=== PATIENT | female | born 1970 | race Hispanic/Latino ===

== ENCOUNTER 2016-10-21 08:22 | Outpatient (CLI) | payer BC ==
--- NOTE | 2016-10-21 14:41 | Mammography Report ---
BILATERAL DIGITAL SCREENING MAMMOGRAM with CAD: 10/21/16 08:22:00 CLINICAL: Routine screening. COMPARISON:09/22/11 FINDINGS: The breasts are heterogeneously dense, which may obscure small masses. A left asymmetry on the CC view requires additional imaging.No architectural distortion or suspicious calcifications.The right breast is negative. IMPRESSION: Left asymmetry requiring further workup. BI-RADS CATEGORY: 0 -- Additional Imaging Evaluation Required RECOMMENDATION: Recall for left mediolateral and spot compression CC views and left breast ultrasound if needed. ACR BI-RADS MAMMOGRAPHIC CODES: 0 = Needs additional imaging evaluation; 1 = Negative; 2 = Benign; 3 = Probably benign; 4 = Suspicious; 5 = Malignant; 6 = Known biopsy-proven malignancy COMMENT: 1. Dense breast tissue, i.e., adenosis, fibrocystic changes, etc., may obscure an underlying neoplasm. 2. Approximately 10% of cancers are not detected with mammography. 3. A negative mammography report should not delay biopsy if a clinically suspicious mass is present. COMMENT: Patient follow-up letters are generated via our [employer] application.
== END 2016-10-21 08:23 | disposition home or self-care (01) ==
LOC: SPVWC 08:22
PROVIDERS: ATTEND Obstetrics & Gynecology
DX: Z12.31 Encounter for screening mammogram for malignant neoplasm of breast (principal); F17.200 Nicotine dependence, unspecified, uncomplicated
CPT/HCPCS: 77067; G0202

== ENCOUNTER 2016-11-03 10:28 | Outpatient (CLI) | payer BC ==
--- NOTE | 2016-11-03 11:32 | Ultrasound Report ---
LEFT DIGITAL DIAGNOSTIC MAMMOGRAM and LEFT BREAST ULTRASOUND: 11/03/16 10:28:00 CLINICAL: Recalled for asymmetry. COMPARISON:10/21/16 screening FINDINGS: ML and spot compression CC views were performed. Partial effacement of asymmetry on the spot view. The lateral view is negative. Ultrasound of the upper-outer left breast was performed and demonstrated normal fibroglandular structures with no mass, cyst or shadowing. Ultrasound of the left axilla demonstrated a lymph node with central fat and benign morphology measuring 2.7 x 0.7 x 2.3 cm. IMPRESSION: Benign mammographic asymmetry and negative left breast ultrasound. BI-RADS CATEGORY: 2 - - Benign RECOMMENDATION: Routine mammographic screening in one year. ACR BI-RADS MAMMOGRAPHIC CODES: 0 = Needs additional imaging evaluation; 1 = Negative; 2 = Benign; 3 = Probably benign; 4 = Suspicious; 5 = Malignant; 6 = Known biopsy-proven malignancy COMMENT: 1. Dense breast tissue, i.e., adenosis, fibrocystic changes, etc., may obscure an underlying neoplasm. 2. Approximately 10% of cancers are not detected with mammography. 3. A negative mammography report should not delay biopsy if a clinically suspicious mass is present. COMMENT: Patient follow-up letters are generated via our [employer] application.
== END 2016-11-03 10:29 | disposition home or self-care (01) ==
LOC: SPVWC 10:28
PROVIDERS: ATTEND Obstetrics & Gynecology
DX: N64.89 Other specified disorders of breast (principal); F17.200 Nicotine dependence, unspecified, uncomplicated
CPT/HCPCS: 76642; G0206

== ENCOUNTER 2018-09-21 10:44 | Outpatient (CLI) | payer BC ==
--- NOTE | 2018-09-21 13:24 | Mammography Report ---
BILATERAL DIGITAL SCREENING MAMMOGRAM with CAD: 09/21/18 10:44:00 CLINICAL: Routine screening. COMPARISON:10/21/16 FINDINGS: The breasts are heterogeneously dense, which may obscure small masses. Right asymmetries require additional imaging.No architectural distortion or suspicious calcifications.The left breast is negative. IMPRESSION: Right asymmetries requiring further workup. BI-RADS CATEGORY: 0 -- Additional Imaging Evaluation Required RECOMMENDATION: Recall for right mediolateral , spot compression CC and MLO views and right breast ultrasound. COMMENT: 1. Dense breast tissue, i.e., adenosis, fibrocystic changes, etc., may obscure an underlying neoplasm. 2. Approximately 10% of cancers are not detected with mammography. 3. A negative mammography report should not delay biopsy if a clinically suspicious mass is present. COMMENT: Patient follow-up letters are generated via our [employer] application.
== END 2018-09-21 10:45 | disposition home or self-care (01) ==
LOC: SPVWC 10:44
PROVIDERS: ATTEND Obstetrics & Gynecology
DX: Z12.31 Encounter for screening mammogram for malignant neoplasm of breast (principal); K21.9 Gastro-esophageal reflux disease without esophagitis
CPT/HCPCS: 77067

== ENCOUNTER 2018-10-01 09:14 | Outpatient (CLI) | payer BC ==
--- NOTE | 2018-10-01 11:44 | Mammography Report ---
RIGHT DIGITAL DIAGNOSTIC MAMMOGRAM 10/01/2018 RIGHT BREAST ULTRASOUND INDICATION: Recalled to evaluate asymmetries. TECHNIQUE: Digital 2-D mammographic imaging was performed. This examination was interpreted with the benefit of Computer-Aided Detection (CAD) analysis. COMPARISON: 09/21/2018 FINDINGS: Breast Density: The breasts are heterogeneously dense, which may obscure small masses. ML and spot compression MLO and CC views were performed. Circumscribed masses are identified on all v iews. Ultrasound Findings: Complete sonographic evlauation of all 4 quadrants and retroareolar region was p erformed. An oval solid smooth hypoechoic mass at 9:00 5 cm from the nipple measures 1.1 x 0.6 x 1. 1 cm and corresponds to an asymmetry on the mammogram. This mass is also palpable. An oval solid hypo echoic mass at 10:00 5 cm from the nipple measures 4 x 3 x 3 mm and correlates with the second mammog raphic density. It demonstrates posterior enhancement. IMPRESSION: Solid suspicious right breast masses at 9:00 5 cm from the nipple and at 10:00 5 cm from the nipple. Recommend ultrasound-guided needle biopsy. BI-RADS Category 4: Suspicious for Malignancy. I discussed the findings and my recommendation for needle biopsy with the patient at the time of the exam. A written summary of these findings will be mailed to the patient. The patient will be entered into a mammography reporting system which will generate a reminder letter for the patient's next appointmen t at the appropriate interval. FURTHER INFORMATION: According to the [employer], yearly mammograms are recommend ed starting at age 40 and continuing as long as a woman is in good health. Breast MRI is recommended for women with an approximately 20-25% or greater lifetime risk of breast cancer, including women wi th a strong family history of breast or ovarian cancer and women who have been treated for Hodgkin's disease. Signer Name: Marquise Madera MD Signed: 10/01/2018 11:39 AM Workstation Name: [id number]
--- NOTE | 2018-10-01 12:14 | Ultrasound Report ---
RIGHT DIGITAL DIAGNOSTIC MAMMOGRAM and RIGHT BREAST ULTRASOUND INDICATION: Recalled to evaluate asymmetries. TECHNIQUE: Digital 2-D mammographic imaging was performed. This examination was interpreted with the benefit of Computer-Aided Detection (CAD) analysis. COMPARISON: 09/21/2018 FINDINGS: Breast Density: The breasts are heterogeneously dense, which may obscure small masses. ML and spot compression MLO and CC views were performed. Circumscribed masses are identified on all vie ws. Ultrasound Findings: Complete sonographic evlauation of all 4 quadrants and retroareolar region was p erformed. An oval solid smooth hypoechoic mass at 9:00 5 cm from the nipple measures 1.1 x 0.6 x 1.1 cm and corresponds to an asymmetry on the mammogram. This mass is also palpable. An oval solid hypoec hoic mass at 10:00 5 cm from the nipple measures 4 x 3 x 3 mm and correlates with the second mammogra phic density. It demonstrates posterior enhancement. IMPRESSION: Solid suspicious right breast masses at 9:00 5 cm from the nipple and at 10:00 5 cm from the nipple. Recommend ultrasound-guided needle biopsy of both masses. BI-RADS Category 4: Suspicious for Malignancy. I discussed the findings and my recommendation for needle biopsies with the patient at the time of th e exam. A written summary of these findings will be mailed to the patient. The patient will be entered into a mammography reporting system which will generate a reminder letter for the patient's next appointmen t at the appropriate interval. FURTHER INFORMATION: According to the [employer], yearly mammograms are recommende d starting at age 40 and continuing as long as a woman is in good health. Breast MRI is recommended f or women with an approximately 20-25% or greater lifetime risk of breast cancer, including women with a strong family history of breast or ovarian cancer and women who have been treated for Hodgkin's di sease. Signer Name: Marquise Madera MD Signed: 10/01/2018 12:09 PM Workstation Name: [id number]
== END 2018-10-01 09:15 | disposition home or self-care (01) ==
LOC: SPVWC 09:14
PROVIDERS: ATTEND Obstetrics & Gynecology
DX: R92.8 Other abnormal and inconclusive findings on diagnostic imaging of breast (principal); K21.9 Gastro-esophageal reflux disease without esophagitis

== ENCOUNTER 2018-10-10 08:47 | Outpatient (CLI) | payer BC ==
--- NOTE | 2018-10-10 10:36 | Mammography Report ---
RIGHT DIGITAL DIAGNOSTIC MAMMOGRAM CLINICAL: For clip placement after ultrasound needle biopsy. COMPARISON: 09/21/2018 FINDINGS: A localizer clip is now identified within the mass at 9:00. IMPRESSION: Concordant clip deployment. Signer Name: Marquise Madera MD Signed: 10/10/2018 10:32 AM Workstation Name: [id number]
--- NOTE | 2018-10-10 10:38 | Ultrasound Report ---
ULTRASOUND-GUIDED NEEDLE CORE BIOPSY RIGHT BREAST WITH CLIP PLACEMENT CLINICAL: A superficial right breast mass at 9:00 5 cm from the nipple. FINDINGS: The procedure was explained to the patient and informed consent was obtained. Ultrasound demonstrated the previously identified lesion at 9:00 5 cm from the nipple. The previously identified smaller lesion at 10:00 5 cm from the nipple could not be found. A marker breast with a felt tip marker and a timeout was called. The skin was prepped with Chloro-Pre p and anesthetized with 1% lidocaine. Needle core biopsy was performed through tiny dermatotomy using ultrasound guidance, 2% lidocaine wit h epinephrine for deep anesthesia and a 14-gauge Achieve biopsy device. 4 cores were obtained and dinah akin in formalin. The lesion showed no collapse with a biopsy. A clip was deployed within the lesion. The patient tolerated the procedure well and there were no apparent convocations. Hemostasis was achi eved with minimal effort and a sterile dressing was applied. A post procedure mammogram demonstrated concordant clip deployment. She left the department in good c ondition and was given instructions for wound care and follow-up. IMPRESSION: Uncomplicated ultrasound guided needle core biopsy with clip placement right breast. Signer Name: Marquise Madera MD Signed: 10/10/2018 10:34 AM Workstation Name: [id number]
== END 2018-10-10 08:48 | disposition home or self-care (01) ==
LOC: SPVWC 08:47
PROVIDERS: ATTEND Obstetrics & Gynecology
DX: C50.411 Malignant neoplasm of upper-outer quadrant of right female breast (principal); F17.210 Nicotine dependence, cigarettes, uncomplicated; K21.9 Gastro-esophageal reflux disease without esophagitis; M19.90 Unspecified osteoarthritis, unspecified site; Z88.2 Allergy status to sulfonamides; Z79.899 Other long term (current) drug therapy; Z88.8 Allergy status to other drugs, medicaments and biological substances
CPT/HCPCS: 88305; 88341; 88342

== ENCOUNTER 2018-10-25 13:03 | Outpatient (CLI) | payer BC ==
--- NOTE | 2018-10-30 12:50 | PET Report ---
PET SB TO MT INITIAL INDICATION: C50.411 staging of right breast cancer TECHNIQUE: 15.5 mCi of F18-FDG is administered via the right antecubital fossa at 1347 hours. Imaging is perfor med at 1459 hours. Glucose level is 101 mg/dl just prior to the exam. Imaging is performed from the skull base to the proximal thighs. CT imaging is obtained for attenuation correction and anatomic localization. All CT scans at this location are performed using CT dose reduction for ALARA by means of automated exposure control. COMPARISON: None Available FINDINGS: The PET images demonstrate a solitary focus of increased radiotracer accumulation within a 1 cm nodu le in the lateral right breast at approximate 3:00 position. This nodule appears to contain a biopsy clip. Maximum SUV measures 7.7. No additional areas of abnormal uptake are identified. CT NECK: No evidence for mass or adenopathy. CT CHEST: Heart and mediastinal structures are within normal limits. No intrathoracic or extrathoraci c adenopathy is identified. The lungs are clear. No suspicious nodule or mass. CT ABDOMEN: Normal liver, biliary system, pancreas, spleen, adrenal glands, kidneys, aorta and bowel loops. No visceral mass or abdominal adenopathy is identified. CT PELVIS: The uterus, adnexa and bladder are unremarkable. No pelvic mass or adenopathy. Review of the bony structures demonstrates mild degenerative changes in the spine. No suspicious bony lesion or fracture is identified. IMPRESSION: 1 cm hypermetabolic nodule in the lateral right breast consistent with primary breast cancer. No evid ence for metastatic disease at this time. Signer Name: Emilio Hamilton Jr, MD Signed: 10/30/2018 12:45 PM Workstation Name: [id number]
== END 2018-10-25 13:04 | disposition home or self-care (01) ==
LOC: PET 13:03
PROVIDERS: ATTEND Internal Medicine Hematology & Oncology
DX: N63.10 Unspecified lump in the right breast, unspecified quadrant (principal); C50.411 Malignant neoplasm of upper-outer quadrant of right female breast; K21.9 Gastro-esophageal reflux disease without esophagitis; Z72.0 Tobacco use; Z80.3 Family history of malignant neoplasm of breast
CPT/HCPCS: 78815; 82962; A9552

== ENCOUNTER 2018-10-29 09:21 | Outpatient (CLI) | payer BC ==
--- NOTE | 2018-10-30 09:50 | Magnetic Resonance Report ---
BILATERAL BREAST MR WITHOUT AND WITH GADOLINIUM INDICATION: This is a 48-year-old female with recent diagnosis of right breast carcinoma. On 10/11/19 19, a right breast ultrasound guided biopsy was performed for a mass in the 9:00 position of the righ t breast. A second mass lesion at 10:00 seen on prior exam could not be identified at the time of bio psy. COMPARISONS: Comparison is with recent bilateral screening mammogram, 09/21/2018, as well as diagnost ic right mammogram and ultrasound on 10/01/2018 and 10/10/2018 TECHNIQUE: Bilateral breast MRI was performed on a 1.5 Elaine magnet with a dedicated breast coil. M ultiplanar dynamic sequences of both breasts were obtained before and after administration of weight- based gadolinium. Post processing images include, post contrast subtraction, maximum intensity proje ction, and reconstructed multiplanar images. FINDINGS: Both breasts contain heterogeneously dense breast tissue RIGHT BREAST: In the 9:00 position of the right breast, middle depth, there is an oval partially well -circumscribed mass measuring 11 mm in greatest diameter. It does contain a biopsy clip, documenting that this is the biopsy-proven breast carcinoma. This carcinoma is approximately 5.5 cm from the nipp le, 6.7 cm from the pectoralis muscle and is abutting the dermis. There is no definitive dermal invas ion, however. There is a second enhancing mass in the right breast at approximately 8:00, posterior depth. This mas s is approximately 10 mm in greatest diameter and is located 9 mm from the pectoralis muscle, 9.5 cm from the nipple, and 2.5 cm from the nearest skin surface (lateral). This mass shows peripheral enhan cement only. I suspect there is central necrosis. This mass is certainly suspicious for a second site of breast carcinoma. There is a third small enhancing lesion in the upper outer quadrant, posterior depth which I suspect is a benign intramammary lymph node. No suspicious axillary adenopathy. LEFT BREAST: No breast mass or abnormal area of enhancement is identified within the left breast. The left breast has a normal appearance on MRI. Visualized portions of the thoracic spine, liver, and axillary fely regions are unremarkable. IMPRESSION: 1. Biopsy-proven breast carcinoma in the 9:00 position of the right breast, middle depth. 2. 10 mm partially enhancing mass in the 8:00 position, posterior depth, highly suggestive for second site of breast carcinoma. 3. No abnormal findings within the left breast. FINAL ASSESSMENT: BI-RADS 5: Highly suggestive for malignancy. Signer Name: Genevieve Willis MD Signed: 10/30/2018 9:45 AM Workstation Name: [id number]
== END 2018-10-29 09:22 | disposition home or self-care (01) ==
LOC: SPVIMAG 09:21
PROVIDERS: ATTEND Surgery
DX: C50.911 Malignant neoplasm of unspecified site of right female breast (principal)
CPT/HCPCS: A9577; C8908; 77049

== ENCOUNTER 2018-10-30 06:54 | Day surgery (SDC) | payer BC ==
[~2018-10-30 06:54] MED LIST: ANCEF/STERILE WATER 2 GM/20 ML 2 GM/20 ML SYRINGE IV SCH
--- NOTE | 2018-10-30 07:31 | Anesthesia Day of Surgery ---
Anesthesia Day of Surgery - Day of Surgery Patient Examined: Yes Patient H&P Reviewed: Yes Patient is NPO: Yes
--- NOTE | 2018-10-30 07:31 | Anesthesia Consultation ---
Anesthesia Consult and Med Hx Date of service: 10/30/18 - Airway Anesthetic Teeth Evaluation: Good ROM Head & Neck: Adequate Mental/Hyoid Distance: Adequate Mallampati Class: Class II Intubation Access Assessment: Good - Pulmonary Exam CTA: Yes - Cardiac Exam Cardiac Exam: RRR - Pre-Operative Health Status ASA Pre-Surgery Classification: ASA3 Proposed Anesthetic Plan: General, MAC - Pulmonary Hx Smoking: Yes (25 years) - Gastrointestinal Hx Gastroesophageal Reflux Disease: Yes
[2018-10-30] MEDS ORDERED: LACTATED RINGERS 1,000 ML IV SCH (08:00)
[2018-10-30] MEDS ORDERED: ceFAZolin 2 GM in NACL 0.9% 100 ML IV ONE (08:00)
[2018-10-30] MEDS ORDERED: VERSED IV NR (08:00)
[2018-10-30] MEDS ORDERED: SUBLIMAZE ONE (08:59)
[2018-10-30] MEDS ORDERED: VERSED ONE (08:59)
[2018-10-30] MEDS ORDERED: DIPRIVAN 10 MG/ML IV ONE ×2 (09:00→09:44)
[2018-10-30] MEDS ORDERED: NACL 0.9% IV ONE (09:09)
[2018-10-30] MEDS ORDERED: MARCAINE 0.25% INFILTRATI ONE ×2 (09:09→09:17)
[2018-10-30] MEDS ORDERED: XYLOCAINE 1% 20 mL INFILTRATI ONE (09:09)
[2018-10-30] MEDS ORDERED: HEPARIN 10,000 UNITS/10 ML IV ONE (09:09)
[2018-10-30] MEDS ORDERED: NACL 0.9% 100 ML ONE (09:17)
[2018-10-30] MEDS ORDERED: XYLOCAINE 1% 20 mL ONE (09:17)
[2018-10-30] MEDS ORDERED: HEPARIN 10,000 UNITS/10 ML ONE (09:17)
[2018-10-30] MEDS ORDERED: XYLOCAINE MPF 2% ONE (09:21)
--- NOTE | 2018-10-30 10:13 | Short Stay Summary ---
Short Stay Documentation Date of service: 10/30/18 - History Principal diagnosis: right breast cancer H&P: obtained from office - Allergies and Medications Current Medications: Allergies levofloxacin [From Levaquin] Allergy (Verified 07/13/14 14:04) Rash Sulfa (Sulfonamide Antibiotics) Allergy (Verified 02/24/13 21:02) Hives Home Medications Medication Instructions Recorded Confirmed Last Taken Type Celecoxib [Celebrex] 50 mg PO BID 02/24/13 10/30/18 10/26/18 09:00 History Ciprofloxacin HCl [Cipro] 500 mg PO Q12H #20 tab 02/24/13 10/30/18 Unknown Rx Cyclobenzaprine HCl [FLEXERIL] 10 mg PO PRN PRN 02/24/13 10/30/18 10/27/18 09:00 History Duloxetine HCl [Cymbalta] 60 mg PO QDAY 02/24/13 10/30/18 10/29/18 21:00 History Fenofibrate [Fenoglide] 40 mg PO QDAY 02/24/13 10/30/18 10/29/18 21:00 History Lansoprazole [Prevacid] 30 mg PO QDAY 02/24/13 10/30/18 10/29/18 09:00 History Ondansetron [Zofran] 4 mg PO Q6HR PRN #10 tablet 02/24/13 10/30/18 Unknown Rx SUMAtriptan SUCCINATE [Imitrex] 100 mg PO PRN PRN 02/24/13 10/30/18 10/29/18 21:00 History HYDROcodone/APAP 5-325 [[place] 1 each PO Q6HR PRN #20 tablet 07/13/14 10/30/18 Unknown Rx 5/325] Atorvastatin [Lipitor Tab] 40 mg PO QHS 10/29/18 10/30/18 10/29/18 21:00 History Dicyclomine [Bentyl] 10 mg PO PRN 10/29/18 Unknown History Imitrex 100 mg PO PRN 10/29/18 10/29/18 09:00 History Propranolol HCl [Innopran Xl] 80 mg PO 10/29/18 10/29/18 21:00 History Topiramate [Topamax] 50 mg PO PRN 10/29/18 10/30/18 06:00 History Trazodone HCl 75 mg PO QHS 10/29/18 10/29/18 10/29/18 21:00 History Active Medications Cefazolin Sodium (Ancef/Sterile Water 2 Gm/20 Ml) 2 gm in 20 mls @ 80 mls/hr IV PREOP SHARI Stop: 10/30/18 23:59 Lactated Ringer's (Lactated Ringers) 1,000 mls @ 100 mls/hr IV DIRECT SHARI Last Admin: 10/30/18 07:45 Dose: 100 mls/hr Documented by: Midazolam HCl (Versed) 2 mg IV PREOP NR Stop: 10/30/18 23:59 Last Admin: 10/30/18 08:52 Dose: 2 mg Documented by: - Brief post op/procedure progress note Date of procedure: 10/30/18 Pre-op diagnosis: right breast cancer Post-op diagnosis: same Procedure: left subclavian port placement, mindray ultrasound guidance Anesthesia: MAC, local Findings: good placement of port without PTX on post op CXR Surgeon: MEET CASTILLO Estimated blood loss: minimal Pathology: none Condition: stable - Hospital course Hospital course: Pt observed in PACU and discharged to home in stable condition when criteria met - Disposition Condition at discharge: Good Disposition: DC-01 TO HOME OR SELFCARE Short Stay Discharge Plan Activity: no restrictions Diet: regular Wound: open to air, other (see printed discharge instructions) Additional Instructions: SEE PRINTED DISCHARGE INSTRUCTIONS Follow up with: BEATRIZ BELTRE MD [Primary Care Provider] - 7 Days MEET CASTILLO DO [Staff Physician] - 10 Days Prescriptions: HYDROcodone/APAP 5-325 [[place] 5-325 mg TAB] 1 each PO Q6HR PRN #10 tablet PRN Reason: Pain
[2018-10-30] MEDS ORDERED: ZOFRAN IV PRN (10:21)
[2018-10-30] MEDS ORDERED: DILAUDID IV PRN (10:21)
[2018-10-30] MEDS ORDERED: DILAUDID ONE (10:22)
[2018-10-30 10:47] VITALS: BP 126/87
--- NOTE | 2018-10-30 10:48 | Fluoroscopy Report ---
INTRAOPERATIVE FLUOROSCOPY: PORT PLACEMENT INDICATION: BREAST CANCER. TECHNIQUE: Intraoperative spot images were obtained during the procedure. FINDINGS: Left subclavian port catheter tip projects at the SVC/right atrial junction. No pneumothorax is seen. Fluoroscopy Time: 38 seconds. Fluoroscopy Images: 2. Signer Name: Paul Yoon MD Signed: 10/30/2018 10:43 AM Workstation Name: [id number]
--- NOTE | 2018-10-30 15:52 | Operative Report ---
PREOPERATIVE DIAGNOSIS: Right breast cancer. POSTOPERATIVE DIAGNOSIS: Right breast cancer. PROCEDURE PERFORMED: Left subclavian port placement with Mindray ultrasound guidance. ANESTHESIA: MAC local. FINDINGS: Good placement of port without pneumothorax and postop chest x-ray. SURGEON: Johanna Harden DO. ESTIMATED BLOOD LOSS: Minimal. PATHOLOGY: None. CONDITION DISPOSITION: The patient is stable to PACU. HISTORY OF PRESENT ILLNESS AND INDICATION: The patient is a 48-year-old female who has recently been diagnosed with right-sided breast cancer and was deemed a candidate for chemotherapy by her oncologist. She was seen in the office for evaluation and all procedure, risks, benefits and alternatives were discussed with her and questions answered. Consent was obtained. PROCEDURE IN DETAIL: The patient was identified in preoperative area and taken back to the operating room and placed on the operating table in supine position. After anesthesia was induced, bilateral arms were tucked and all bony prominences padded. A shoulder roll was also placed. Bilateral upper chest and neck were prepped and draped in the usual sterile fashion. Timeout was performed. Using the Mindray ultrasound, the left subclavian vein and internal jugular vein were identified. The patient was placed in Trendelenburg position and the left subclavian vein was seen to easily collapse with each respiration. It was therefore decided to attempt a left internal jugular vein stick. The skin was anesthetized with local anesthetic and the vein accessed on the first stick. The vein was attempted to be accessed; however, collapsed very easily with each respiration and therefore this attempt was aborted. Pressure was held at the site and hemostasis ensured. I then turned my attention to evaluating subclavian vein again. The subclavian vein was found and appeared to be less collapsible in the Trendelenburg position and therefore it was accessed on the first stick. After access, there was return of dark red nonpulsatile blood. A wire was threaded easily and position confirmed using fluoroscopy. A local anesthetic was infiltrated in skin and subcutaneous tissue at the upper chest at the intended incision site for the pocket. A 4 cm incision was made using 15 blade and dissection was carried down through skin and subcutaneous tissue using Bovie electrocautery until the prepectoral fascia was identified. A subcutaneous pocket was then created for the port using combination of blunt dissection and electrocautery. The pocket was checked for hemostasis. The catheter was then tunneled from the pocket to the wire and then the dilator breakaway catheter sheath were inserted over the wire and advanced under fluoroscopic guidance. The dilator and catheter and wire were removed and the catheter was threaded through the break-away sheath in the usual fashion and the breakaway sheath removed. Catheter was seen to lay flush under the skin. There were no kinks. The catheter was pulled back under fluoroscopic guidance until the tip was seen in the superior vena cava. The port was then cut and assembled in the usual fashion and sutured to the prepectoral fascia using 2-0 Vicryl interrupted sutures. The port was tested with heparinized saline. There was return of dark red blood and the port flushed easily. The port was then instilled with 3000 units of heparin. The wound was checked for hemostasis and the incisions were then closed. The deep dermal layer was closed with interrupted 3-0 Vicryl sutures. Both skin incisions were closed with 4-0 Monocryl subcuticular stitches and skin glue. At the end of the case, all sponge, instrument, sharp counts were correct x 2. Postoperative chest x-ray showed the port to be in good position without pneumothorax. The patient was awoken from anesthesia and taken to PACU in stable condition. JOB# [id number] FAWN/JUAN CARLOS
== END 2018-10-30 11:20 | disposition home or self-care (01) ==
LOC: OR 06:54
PROVIDERS: ATTEND Surgery
DX: C50.911 Malignant neoplasm of unspecified site of right female breast (principal); G43.909 Migraine, unspecified, not intractable, without status migrainosus; K21.9 Gastro-esophageal reflux disease without esophagitis; M19.90 Unspecified osteoarthritis, unspecified site; F32.9 Major depressive disorder, single episode, unspecified; F41.9 Anxiety disorder, unspecified; F17.210 Nicotine dependence, cigarettes, uncomplicated; Z88.2 Allergy status to sulfonamides; Z88.8 Allergy status to other drugs, medicaments and biological substances; Z79.899 Other long term (current) drug therapy
CPT/HCPCS: 36561; 77001; C1769; C1788; J0690; J1170; J1644; J2250; J2704; J3010; J7120

== ENCOUNTER 2018-11-06 08:01 | Outpatient (CLI) | payer BC ==
[2018-11-06] MEDS ORDERED: FLUSH HEPARIN IV ONE (08:35)
--- NOTE | 2018-11-06 14:14 | Nuclear Medicine Report ---
NUCLEAR MEDICINE MUGA GATED CARDIAC SCAN HISTORY: Cardiomyopathy unspecified TECHNIQUE: 20 mCi of technetium 99m labeled red blood cells was administered. First pass technique wa s performed. FINDINGS: The planar images demonstrate no gross cardiac wall motion abnormality. Heart rate measures 63 bpm. The cardiac ejection fraction ranges from 53.4-55.2%. IMPRESSION: The cardiac ejection fraction ranges from 53.4-55.2%. Signer Name: Emilio Hamilton Jr, MD Signed: 11/06/2018 2:09 PM Workstation Name: [id number]
== END 2018-11-06 08:02 | disposition home or self-care (01) ==
LOC: NM 08:01
PROVIDERS: ATTEND Internal Medicine Cardiovascular Disease
DX: I42.9 Cardiomyopathy, unspecified (principal); K21.9 Gastro-esophageal reflux disease without esophagitis
CPT/HCPCS: 78472; A9560; J1642

== ENCOUNTER 2018-11-07 09:47 | Outpatient (CLI) | payer BC ==
--- NOTE | 2018-11-07 12:04 | Mammography Report ---
Ultrasound-guided right breast biopsy INDICATION: New diagnosis of right breast cancer, secondary of concern noted posteriorly in the right breast on MR COMPARISON: MR breast 10/29/2018, right breast ultrasound 10/01/2018, right wrist sonographic guided biop sy images 10/10/2018, postbiopsy right mammogram 10/10/2018, right diagnostic mammogram 10/01/2018, bilat eral screening mammogram 09/21/2018, bilateral screening mammogram 10/21/2016 Procedure was discussed at length with the patient in advance including possible risks and benefits. The possibility of bleeding and hematoma formation as well as the possibility of injury to the chest wall musculature was discussed in detail. Patient is not on anticoagulant therapy and reports no pert inent allergies. Timeout was performed. The hypoechoic nodule with shadowing near the chest wall was identified. This measures approximate 9 mm in diameter and is located in the 9:00 position, 9 cm from the nipple, corresponding to mammographic and MR abnormalities. With a lateral approach using asepti c technique and local anesthesia, a 14-gauge Achieve biopsy device was used to obtain 4 core samples of this lesion which were placed in formalin and labeled and secured for transport to pathology. A cl ip was left in place at the end of the procedure. No obvious hematoma or chest wall injury was noted in examination following biopsy. No obvious complication occurred and the patient tolerated the proce dure well. Site was secured and patient was sent for postbiopsy mammogram. Postbiopsy right mammogram Two-view mammogram shows the clip at the site of a radiographic density in the far posterior breast w ith decrease in prominence of this density following the biopsy. The recent biopsy site more anterior ly is also noted with a clip. IMPRESSION: Successful ultrasound-guided right breast biopsy Signer Name: Seven Rice MD Signed: 11/07/2018 12:00 PM Workstation Name: [id number]
== END 2018-11-07 09:48 | disposition home or self-care (01) ==
LOC: SPVWC 09:47
PROVIDERS: ATTEND Surgery
DX: C50.411 Malignant neoplasm of upper-outer quadrant of right female breast (principal); K21.9 Gastro-esophageal reflux disease without esophagitis; M19.90 Unspecified osteoarthritis, unspecified site; F17.210 Nicotine dependence, cigarettes, uncomplicated; Z88.2 Allergy status to sulfonamides; Z79.899 Other long term (current) drug therapy; Z88.8 Allergy status to other drugs, medicaments and biological substances
CPT/HCPCS: 88305; 88341; 88342

== ENCOUNTER 2019-04-03 07:37 | Day surgery (SDC) | payer BC, OTHER ==
[~2019-04-03 07:37] MED LIST changes: -ANCEF/STERILE WATER 2 GM/20 ML 2 GM/20 ML SYRINGE IV SCH; +LIDOCAINE (1%) 10 MG/1 ML VIAL 20 ML MDV INFILTRATI NR; +ceFAZolin/Water 2 GM/20 ML 2 GM/20 ML SYRINGE IV NR
[2019-04-03] MEDS ORDERED: LIDOCAINE (1%) 10 MG/1 ML VIAL 20 ML MDV ONE (08:13)
[2019-04-03] MEDS ORDERED: LACTATED RINGERS 1,000 ML ONE (09:07)
--- NOTE | 2019-04-03 09:57 | Anesthesia Consultation ---
Anesthesia Consult and Med Hx Date of service: 04/03/19 - Airway Anesthetic Teeth Evaluation: Caps ROM Head & Neck: Adequate Mental/Hyoid Distance: Adequate Mallampati Class: Class II Intubation Access Assessment: Good - Pulmonary Exam CTA: Yes - Cardiac Exam Cardiac Exam: RRR - Pre-Operative Health Status ASA Pre-Surgery Classification: ASA3 Proposed Anesthetic Plan: General Nerve Block: PEC - Pulmonary Hx Smoking: Yes (SINCE AGE 16; 8CIG/DAY) - Central Nervous System Hx Psychiatric Problems: Yes - Gastrointestinal Hx Gastroesophageal Reflux Disease: Yes - Other Systems Hx Alcohol Use: Yes (SOCIALLY) Hx Substance Use: No Hx Cancer: Yes
--- NOTE | 2019-04-03 09:58 | Anesthesia Day of Surgery ---
Anesthesia Day of Surgery - Day of Surgery Patient Examined: Yes Patient H&P Reviewed: Yes Patient is NPO: Yes
[2019-04-03] MEDS ORDERED: dexAMETHasone 4 MG/ML VIAL IV NR (10:00)
[2019-04-03] MEDS ORDERED: GABAPENTIN 300 MG CAP PO NR (10:00)
[2019-04-03] MEDS ORDERED: FAMOTIDINE 20 MG TAB PO NR (10:00)
[2019-04-03] MEDS ORDERED: MIDAZOLAM 2 MG/2 ML INJ IV NR (10:00)
[2019-04-03] MEDS ORDERED: LACTATED RINGERS 1,000 ML IV SCH (10:00)
[2019-04-03] MEDS ORDERED: BUPIVACAINE/PF (0.5%) 5 MG/1 ML 10 ML VIAL INFILTRATI NR (10:00)
[2019-04-03] MEDS ORDERED: CELECOXIB 200 MG CAP PO NR (10:00)
--- NOTE | 2019-04-03 10:13 | Mammography Report ---
NEEDLE LOCALIZATION AND HOOKWIRE PLACEMENT RIGHT BREAST X2 INDICATION: Right breast cancer at two sites. COMPARISON: 03/11/2019 FINDINGS: Using mammographic guidance, sterile technique and 1% lidocaine, a 10 [address] Valverde [address] from a lateral approach to localize a posterior lateral biopsy clip corresponding to the known canc er. Satisfactory positioning was confirmed on orthogonal views and the hookwire deployed. The needle was removed. A 3.5 cm Valvered 2 hookwire was placed from a lateral approach to localize a more anteri or biopsy clip corresponding to a known cancer. Satisfactory positioning was confirmed by orthogonal views and the hookwire was deployed. The needle was removed. The patient tolerated the procedure well and there were no apparent complications. She was taken to the operative suite in good condition. IMPRESSION: Uncomplicated placement of 2 hook wires in the right breast to localize 2 known cancers. Signer Name: Marquise Madera MD Signed: 04/03/2019 10:08 AM Workstation Name: [id number]
[2019-04-03] MEDS ORDERED: BUPIVACAINE-EPINEPHRINE/PF 0.5%-1:200,000 (30 ML) VIAL INFILTRATI ONE (11:43)
[2019-04-03] MEDS ORDERED: PROPOFOL 200 MG/20 ML VIAL IV ONE (12:46)
[2019-04-03] MEDS ORDERED: METHYLENE BLUE 50 MG/10 ML AMP ONE (12:46)
[2019-04-03] MEDS ORDERED: SODIUM CHLORIDE P/F VIAL 10 ML 10 ML ONE (12:46)
[2019-04-03] MEDS ORDERED: LIDOCAINE MPF (2%) 20 MG/1 ML VIAL 5 ML ONE (12:46)
[2019-04-03] MEDS ORDERED: fentaNYL 100 MCG/2 ML INJ ONE (12:46)
[2019-04-03] MEDS ORDERED: dexAMETHasone 20 MG/5 ML VIAL ONE (13:15)
[2019-04-03] MEDS ORDERED: ONDANSETRON 4 MG/2 ML INJ ONE (13:15)
[2019-04-03] MEDS ORDERED: PHENYLEPHRINE/NS 1,000 MCG/10 ML SYRINGE (OR USE) IV ONE (13:17)
[2019-04-03] MEDS ORDERED: ePHEDrine SULFATE 50 MG/1 ML INJ ONE (13:51)
[2019-04-03] MEDS ORDERED: WATER FOR IRRIG STERILE 1,500 ML BOTTLE IR ONE (14:43)
[2019-04-03] MEDS ORDERED: METHYLENE BLUE 50 MG/10 ML AMP IRRIGATION ONE (14:44)
[2019-04-03] MEDS ORDERED: SODIUM CHLORIDE 0.9% P/F 10 ML VIAL INFILTRATI ONE (14:45)
--- NOTE | 2019-04-03 15:31 | Mammography Report ---
SPECIMEN RADIOGRAPH RIGHT BREAST INDICATION: Status post excisional biopsy of 2 known cancers. COMPARISON: 03/11/2019 and 11/07/2018 FINDINGS: 2 localizer clips and 2 hookwires are identified within the specimen. IMPRESSION: Excision of the known cancers. Signer Name: Marquise Madera MD Signed: 04/03/2019 3:27 PM Workstation Name: [id number]
--- NOTE | 2019-04-03 16:15 | Operative Report ---
Operative Report Operative Report: April 03, 2019 Preoperative diagnosis: Multifocal right breast cancer of the upper outer quadrant Postoperative diagnosis: Same Procedure: Right needle localization partial mastectomy of the upper outer quadrant and SLNB Surgeon: Gissell Hollingsworth MD Gold Cutter: Mr. Chun Anesthesia: General Findings: Right wires and clips present within radiograph specimen; x5 SLN Complications: None EBL: Less than 50 cc Disposition: PACU in good condition Indications for operative procedure: This is a 48 year old lady with newly diagnosed multifocal right breast cancer of the upper outer quadrant (9:00 positions), Stage II [id number] ER/MI positive. Patient wished to proceed with breast conservation. She completed neoadjuvant chemotherapy of TC. Recent diagnostic imaging following chemotherapy with prior breast cancer masses not present. Radiology bracketed both areas of cancer of location of known IDCA b reast cancer. She understands the role of adjuvant radiation therapy. She wished to proceed with the above procedure. Procedure in detail: The patient was taken to radiology for wire placement for l ocalization known area of cancer. Anesthesia placed right pectoral block. Patient was then taken to the operating room. Gen. anesthesia was administered. The right nipple was injected with radioisotope and 1 cc of methylene blue dye with 1 cc of saline. Right breast and axilla were prepped and draped in the normal sterile operative fashion. The wires were identified. Timeout was performed. Gamma probe was inserted into the axilla. The area of hot spot was identified. A right axillary incision was made with a 15 blade knife with dissection taken down to the subcutaneous tissues. The axillary fascia was opened with the Bovie cautery. 5 SLNs were identified (2 SLNs were maybe axillary tissue with lymphatics). All remaining counts were less than 10% of the highest count. Lymph node was sent to pathology for permanent processing. Hemostasis was obtained in the right axillary cavity. Axillary cavity was appropriately irrigated and suctioned. Hemostasis was noted. Axillary fascia was approximated and closed using interrupted 3-0 Vicryl and the skin brought together and closed using a running 4-0 Monocryl followed by skin affix. Attention was then taken towards the right breast. Lateral breast incision was made with a 15 blade knife and dissection taken down to subcutaneous tissues. First began raising of the lateral flap with removal of the wire from the skin with dissection take down to the latissmus dorsi muslce, followed by raising of the posterior flap with dissection of the posterior breast tissue from the pectoralis muscle and flap taken medially, then followed by raising of the inferior flap, medial flap and superior flap (wire removed from the skin) with all flaps taken down to the pectoralis muscle. The breast area of concern was appropriately removed posteriorly from the pectoralis muscle with the aid of the Bovie cautery. The wires were not encountered. Specimen was marked and then sent to pathology and radiology; radiograph specimen with wires and clips present. Posterior subcutaneous tissues aspect of skin was marked with silk if margins were close so area would be properly identified; breast mass no longer present. Breast cavity was irrigated and hemostasis was obtained. The posterior deep breast tissues were approximated and closed using interrupted 3-0 Vicryl. The subcutaneous tissues were approximated and closed using interrupted 3-0 Vicryl followed by closing of the skin with a running 4-0 Monocryl and skin affix. The patient tolerated surgery very well and she was awaken from anesthesia without any complication and transported to PACU in good condition.
--- NOTE | 2019-04-03 16:18 | Short Stay Summary ---
Short Stay Documentation Date of service: 04/03/19 - History H&P: obtained from office - Allergies and Medications Current Medications: Allergies levofloxacin [From Levaquin] Allergy (Verified 03/28/19 09:28) Rash Sulfa (Sulfonamide Antibiotics) Allergy (Verified 03/28/19 09:28) Hives Home Medications Medication Instructions Recorded Confirmed Last Taken Type Cyclobenzaprine HCl [FLEXERIL] 10 mg PO TID PRN 02/24/13 03/28/19 10/27/18 09:00 History Duloxetine HCl [Cymbalta] 60 mg PO BID 02/24/13 03/28/19 10/29/18 21:00 History Lansoprazole [Prevacid] 30 mg PO QDAY 02/24/13 03/28/19 10/29/18 09:00 History Ondansetron [Zofran TAB] 4 mg PO Q6HR PRN #10 tablet 02/24/13 03/28/19 Unknown Rx SUMAtriptan SUCCINATE [Imitrex] 100 mg PO PRN PRN 02/24/13 03/28/19 10/29/18 21:00 History Atorvastatin [Lipitor] 40 mg PO QHS 10/29/18 03/28/19 10/29/18 21:00 History Dicyclomine [Bentyl] 10 mg PO Q6H PRN 10/29/18 03/28/19 Unknown History Propranolol HCl [Innopran Xl] 80 mg PO DAILY 10/29/18 03/28/19 10/29/18 21:00 Hi story Topiramate [Topamax] 50 mg PO BID PRN 10/29/18 03/28/19 10/30/18 06:00 History ALPRAZolam [Xanax TAB] 0.25 mg PO TID PRN 03/28/19 03/28/19 Unknown History Celecoxib [celeBREX] 200 mg PO BID 03/28/19 03/28/19 Unknown History Fenofibrate 160 mg PO DAILY 03/28/19 03/28/19 Unknown History Gabapentin 300 mg PO TID 03/28/19 03/28/19 Unknown History Loratadine [Claritin] 10 mg PO DAILY PRN 03/28/19 03/28/19 Unknown History Trazodone HCl 150 mg PO QHS 03/28/19 03/28/19 Unknown History HYDROcodone/APAP 5-325 [[place] 1 each PO Q6HR PRN #12 tablet 04/03/19 Unknown Rx 5/325] Active Medications Gabapentin (Gabapentin) 600 mg PO PREOP NR Stop: 04/03/19 23:59 Last Admin: 04/03/19 11:45 Dose: 600 mg Documented by: Lactated Ringer's (Lactated Ringers) 1,000 mls @ 100 mls/hr IV DIRECT SHARI Midazolam HCl (Versed) 2 mg IV PREOP NR Stop: 04/03/19 23:59 Last Admin: 04/03/19 11:54 Dose: 2 mg Documented by: - Brief post op/procedure progress note Date of procedure: 04/03/19 Pre-op diagnosis: Multifocal right breast cancer of upper outer quadrant Post-op diagnosis: same Procedure: Right partial mastectomy with SLNB Anesthesia: GETA Findings: Wires and clips present; x5 SLNs Surgeon: KODI MARTINEZ Estimated blood loss: other (less than 50 cc) Pathology: list Specimen disposition: to lab Condition: stable - Disposition Condition at discharge: Good Disposition: DC-01 TO HOME OR SELFCARE Short Stay Discharge Plan Activity: other (no heavy lifting) Diet: regular Wound: keep clean and dry (may shower in 48 hours; no baths; wear breast binder) Follow up with: BEATRIZ BELTRE MD [Primary Care Provider] - 7 Days KODI MARTINEZ MD [Staff Physician] - 7 Days Prescriptions: HYDROcodone/APAP 5-325 [[place] 5/325] 1 each PO Q6HR PRN #12 tablet PRN Reason: Pain
[2019-04-03] MEDS ORDERED: HYDROcodone/ACETAMINOPHEN 5-325 MG TAB PO PRN (17:21)
[2019-04-03 17:46] VITALS: BP 118/73
== END 2019-04-03 18:10 | disposition home or self-care (01) ==
LOC: OR 07:37
PROVIDERS: ATTEND Surgery
DX: C50.411 Malignant neoplasm of upper-outer quadrant of right female breast (principal); I89.8 Other specified noninfective disorders of lymphatic vessels and lymph nodes; E78.00 Pure hypercholesterolemia, unspecified; K21.9 Gastro-esophageal reflux disease without esophagitis; M19.90 Unspecified osteoarthritis, unspecified site; F32.9 Major depressive disorder, single episode, unspecified; F17.210 Nicotine dependence, cigarettes, uncomplicated; F41.9 Anxiety disorder, unspecified; G43.909 Migraine, unspecified, not intractable, without status migrainosus; Z88.2 Allergy status to sulfonamides; Z79.899 Other long term (current) drug therapy; Z98.890 Other specified postprocedural states; Z72.89 Other problems related to lifestyle; Z80.1 Family history of malignant neoplasm of trachea, bronchus and lung; Z88.8 Allergy status to other drugs, medicaments and biological substances; Z80.3 Family history of malignant neoplasm of breast
CPT/HCPCS: 19281; 19282; 19301; 38525; 38792; 76098; 78800; 88307; 88341; 88342; A9541; J0690; J1100; J2250; J2370; J2405; J2704; J3010; J7120; Q9968; 64450; 88333

== ENCOUNTER 2019-10-03 08:11 | Day surgery (SDC) | payer BC ==
[~2019-10-03 08:11] MED LIST changes: +BUPIVACAINE/PF (0.25%) 2.5 MG/ML 30 ML VIAL INFILTRATI ONE; -LIDOCAINE (1%) 10 MG/1 ML VIAL 20 ML MDV INFILTRATI NR; +LIDOCAINE (1%) 10 MG/1 ML VIAL 20 ML MDV ONE; -ceFAZolin/Water 2 GM/20 ML 2 GM/20 ML SYRINGE IV NR
[2019-10-03] MEDS ORDERED: BUPIVACAINE-EPINEPHRINE/PF 0.25%-1:200,000 (30 ML) VIAL INFILTRATI ONE (09:04)
[2019-10-03 09:23] VITALS: BP 122/88
[2019-10-03] MEDS ORDERED: LIDOCAINE (1%) 10 MG/1 ML VIAL 20 ML MDV INFILTRATI ONE (09:27)
[2019-10-03] MEDS ORDERED: BUPIVACAINE/PF (0.25%) 2.5 MG/ML 30 ML VIAL INFILTRATI ONE (09:28)
--- NOTE | 2019-10-03 09:49 | Procedure Note ---
Date of procedure: 10/03/19 Pre-op diagnosis: breast cancer Post-op diagnosis: same Procedure: removal of left sided port a cath Findings: Consent verified on chart. Patient in supine position. The left upper chest was prepped and draped in usual sterile fashion a timeout performed. Local anesthetic was infiltrated into the skin and subcutaneous tissue at the intended incision site. A incision was made through the old scar in the left upper chest using a 15 blade. Dissection was carried down through skin and subcutaneous tissue using a hemostat. The port was encountered and the catheter was grasped between 2 mosquito clamps. This was then cut in between the clamps. The catheter was removed and pressure held at the site for approximately 5 minutes. When pressure was removed, no bleeding was identified from the tract. The subcutaneous port was then dissected free from surrounding tissue using blunt dissection with a hemostat. Once freed from the pocket it was removed. Both the port and catheter were passed off the table as a specimen for identification. The wound was irrigated and hemostasis carefully ensured. Hemostasis was achieved with pressure. The deep dermal layer was closed with interrupted 3-0 Vicryl suture. The skin was approximated using interrupted 4-0 Monocryl subcuticular stitches. Local anesthetic was once again infiltrated into the skin. A layer of Dermabond was applied. Once the Dermabond was dry, a 4 x 4 gauze compression dressing was applied and secured with Tegaderm. The patient tolerated the procedure well. All sharps were disposed of appropriately. The patient was discharged home in stable condition. Anesthesia: local Surgeon: MEET CASTILLO Estimated blood loss: minimal Pathology: list (port and catheter) Specimen disposition: to lab (for ID only) Condition: stable Disposition: other (home)
== END 2019-10-03 09:50 | disposition home or self-care (01) ==
LOC: OR 08:11
PROVIDERS: ATTEND Surgery
DX: C50.919 Malignant neoplasm of unspecified site of unspecified female breast (principal); G43.909 Migraine, unspecified, not intractable, without status migrainosus; E78.00 Pure hypercholesterolemia, unspecified; K21.9 Gastro-esophageal reflux disease without esophagitis; F17.210 Nicotine dependence, cigarettes, uncomplicated; M19.90 Unspecified osteoarthritis, unspecified site; F32.9 Major depressive disorder, single episode, unspecified; F41.9 Anxiety disorder, unspecified; Z72.89 Other problems related to lifestyle; Z88.2 Allergy status to sulfonamides; Z88.8 Allergy status to other drugs, medicaments and biological substances; Z90.11 Acquired absence of right breast and nipple; Z79.899 Other long term (current) drug therapy; Z98.890 Other specified postprocedural states; Z87.440 Personal history of urinary (tract) infections; Z80.3 Family history of malignant neoplasm of breast; Z80.1 Family history of malignant neoplasm of trachea, bronchus and lung
CPT/HCPCS: 88302

== ENCOUNTER 2020-10-06 10:32 | Outpatient (CLI) | payer BC ==
--- NOTE | 2020-10-06 11:59 | Mammography Report ---
DIGITAL DIAGNOSTIC MAMMOGRAM WITH CAD WITH TOMOSYNTHESIS, 10/06/2020 CLINICAL INFORMATION / INDICATION: History of right breast carcinoma. C50.411 BREAST CA TECHNIQUE: Digital right mammographic imaging was performed. This examination was interpreted with the benefit of Computer-aided Detection analysis. COMPARISON: 11/28/2019 prior mammogram FINDINGS: Breast Density: The breasts are heterogeneously dense, which may obscure small masses. No dominant mass, suspicious calcifications or architectural distortion in the right breast. Postsurgical and radiation changes are again noted. Overall, no interval change. IMPRESSION: No mammographic evidence of malignancy. Follow up recommendation: Routine yearly BI-RADS Category 2: Benign. A "normal" or negative report should not discourage follow up or biopsy of a clinically significant f inding. A written summary of these findings will be mailed to the patient. The patient will be entered into a mammography reporting system which will generate a reminder letter for the patient's next appointmen t at the appropriate interval. According to the [employer], yearly mammograms are recommended starting at age 40 and continuing as long as a woman is in good health. Breast MRI is recommended for women with an west roximately 20-25% or greater lifetime risk of breast cancer, including women with a strong family his tory of breast or ovarian cancer and women who have been treated for Hodgkin's disease. Signer Name: Genevieve Willis MD Signed: 10/06/2020 11:54 AM Workstation Name: [employer]
== END 2020-10-06 10:33 | disposition home or self-care (01) ==
LOC: SPVWC 10:32
PROVIDERS: ATTEND Surgery
DX: C50.411 Malignant neoplasm of upper-outer quadrant of right female breast (principal); N64.89 Other specified disorders of breast
CPT/HCPCS: 77065; G0279

== ENCOUNTER 2020-12-01 09:42 | Outpatient (CLI) | payer BC ==
--- NOTE | 2020-12-01 12:41 | Magnetic Resonance Report ---
BILATERAL BREAST MRI WITH AND WITHOUT CONTRAST CLINICAL INFORMATION/INDICATION: The patient has a personal history of right breast cancer diagnosed in 2019. She has undergone treatment with chemotherapy, lumpectomy and radiation. This is a high risk screening evaluation due to a personal history of breast cancer. She reports no new breast symptoms. TECHNICAL: Axial T1 and T2-weighted fat sat images were obtained precontrast. After intravenous admin istration of 17 mL Clariscan, serial axial T1 weighted images with fat saturation were obtained. 3-D MIP projections, kinetic analysis and subtraction imaging was utilized to evaluate. A dedicated 8-hawa nnel breast coil was used for image acquisition. COMPARISON: Diagnostic mammogram, 10/06/2020. Breast MRI, 12/17/2019 FINDINGS: There is moderate background enhancement within the right breast and mild background enhancement with in the left breast. Right breast: Stable postsurgical changes are noted within the lateral right breast from previous lum pectomy. There is mild to moderate generalized skin thickening of the right breast appearing similar when compared to the previous MRI and likely related to expected post-treatment skin changes. The ser cherelle within the posterolateral right breast has slightly decreased in size measuring approximately 2.5 x 3.0 cm as compared to 2.1 x 4.6 cm on the previous study. No new or suspicious area of enhancement is seen in the right breast. Left breast: No dominant mass or suspicious area of enhancement is seen in the left breast. Axilla: Postsurgical changes are again noted in the right axilla. Left axillary lymph nodes appear no rmal. Additional findings: Limited imaging of the thorax and upper abdomen demonstrates no focal abnormalit y. IMPRESSION: 1. Stable postsurgical and posttreatment changes of the right breast as described above. 2. No new or suspicious MRI abnormality of either breast. Follow up recommendation: Routine yearly BI-RADS Category 2: Benign. Signer Name: Whit Miller MD Signed: 12/01/2020 12:37 PM Workstation Name: [id number]
== END 2020-12-01 09:43 | disposition home or self-care (01) ==
LOC: SPVIMAG 09:42
PROVIDERS: ATTEND Surgery
DX: N64.89 Other specified disorders of breast (principal); R59.0 Localized enlarged lymph nodes; Z90.11 Acquired absence of right breast and nipple
CPT/HCPCS: A9575; C8908; 77049